=== PATIENT | female | born 1985 | race Caucasian/White ===

== ENCOUNTER 2017-05-15 22:21 | Emergency (ER) | payer SELFPAY ==
[~2017-05-15] VITALS: Ht 160 cm; Wt 69.0 kg
[2017-05-15 23:38] VITALS: BP 144/101
== END 2017-05-15 23:39 | disposition home or self-care (01) ==
LOC: ED 23:33
DX: S40.022A Contusion of left upper arm, initial encounter (principal); G89.11 Acute pain due to trauma; E03.9 Hypothyroidism, unspecified; W01.0XXA Fall on same level from slipping, tripping and stumbling without subsequent striking against object, initial encounter; Y93.89 Activity, other specified; Y92.410 Unspecified street and highway as the place of occurrence of the external cause; Y99.8 Other external cause status
CPT/HCPCS: 99284

== ENCOUNTER 2017-06-07 19:18 | Inpatient (IN) | payer OTHER ==
[~2017-06-07] VITALS: Ht 162.6 cm; Wt 65.8 kg
[2017-06-07] MEDS ORDERED: NALOXONE 1 MG/ML, 2ML IVPush ONE (19:30)
[2017-06-07 19:54] LABS: DAU SCREEN DISCLAIMER; HCG UR LOT HCG7030192
[2017-06-07] MEDS ORDERED: NALOXONE 1 MG/ML, 2ML ONE (19:54)
[2017-06-07 19:59] LABS: HCG UR OBC PASS
[2017-06-07 20:02] LABS: ASPARTATE AMINO TRANSFERASE 51 U/L (15-37); BLOOD UREA NITROGEN 9 mg/dL (7-18); HEMATOCRIT 46.2 % (34.6-47.8); HEMOGLOBIN 15.7 g/dL (11.7-16.4); WHITE BLOOD COUNT 7.5 x10^3/uL (3.4-10)
[2017-06-07 20:18] LABS: ACETAMINOPHEN < 2 mcg/mL (10-30)
[2017-06-07] MEDS ORDERED: DEXTROSE 50%, 50ML SYRINGE ONE (20:19)
[2017-06-07] MEDS ORDERED: POTASSIUM CHLORIDE 40 MEQ in SODIUM CHLORIDE 0.9% 500 ML IV ONE (20:30)
[2017-06-07] MEDS ORDERED: DEXTROSE 50%, 50ML SYRINGE IVPush ONE (20:30)
[2017-06-07] MEDS ORDERED: POLYETHYLENE GLYCOL 17 GM PACKET PO PRN (23:30)
[2017-06-07] MEDS ORDERED: ACETAMINOPHEN 325 MG TABLET PO PRN (23:30)
[2017-06-07] MEDS ORDERED: BISACODYL 10 MG SUPP PR PRN (23:30)
[2017-06-07] MEDS ORDERED: LORazepam 2 MG/ML, 1ML IVPush PRN (23:30)
[2017-06-07] MEDS ORDERED: NICOTINE 21 MG/24 HR PATCH.TD24 TD SCH (23:30)
[2017-06-07] MEDS ORDERED: ONDANSETRON 2MG/ML, 2ML IVPush PRN (23:30)
[2017-06-08 01:15] VITALS: BP 148/87
[2017-06-08] MEDS: CEFDINIR 300 MG CAPSULE PO SCH ×2 (01:41→08:39)
[2017-06-08] MEDS: HEPARIN 5,000 UNITS/ML, 1ML SQ SCH ×2 (01:41→08:40)
[2017-06-08] MEDS: NS + 20MEQ KCL 1,000 ML IV SCH ×2 (01:41→08:40)
[2017-06-08 06:08] LABS: HEMATOCRIT 41.7 % (34.6-47.8); WHITE BLOOD COUNT 9.5 x10^3/uL (3.4-10)
[2017-06-08 06:16] LABS: ASPARTATE AMINO TRANSFERASE 36 U/L (15-37); BLOOD UREA NITROGEN 6 mg/dL (7-18)
[2017-06-08] MEDS ORDERED: POTASSIUM CHLORIDE 20 MEQ TAB.ER.PRT PO ONE (09:00)
[2017-06-08] MEDS ORDERED: SENNA/DOCUSATE TABLET PO SCH (09:00)
[2017-06-08 09:11] VITALS: BP 150/102
[2017-06-08 09:12] VITALS: BP 143/97
== END 2017-06-08 10:45 | disposition left against medical advice (07) | DRG 640 ==
LOC: SUATTDRO 21:24 → ED 21:29 → EDIP 21:45 → 4EST 06-08 00:06
PROVIDERS: ADMIT Internal Medicine; ATTEND Internal Medicine
DX: E87.6 Hypokalemia (principal); G93.40 Encephalopathy, unspecified; E03.9 Hypothyroidism, unspecified; E16.2 Hypoglycemia, unspecified; F12.10 Cannabis abuse, uncomplicated; F15.10 Other stimulant abuse, uncomplicated; F10.20 Alcohol dependence, uncomplicated; T40.7X5A Adverse effect of cannabis (derivatives), initial encounter; F17.200 Nicotine dependence, unspecified, uncomplicated; J01.00 Acute maxillary sinusitis, unspecified; Y90.4 Blood alcohol level of 80-99 mg/100 ml; F32.9 Major depressive disorder, single episode, unspecified; Z88.1 Allergy status to other antibiotic agents; Z88.8 Allergy status to other drugs, medicaments and biological substances; Y92.89 Other specified places as the place of occurrence of the external cause
CPT/HCPCS: 36415; 70450; 71010; 80053; 80307; 80329; 81025; 82140; 82962; 83735; 84132; 84443; 85025; 93005; 96374; 96375; J1644; J3480; G0479; G0480; J2310; J7040